=== PATIENT | male | born 1980 | race African-American/Black ===

== ENCOUNTER 2023-01-03 11:36 | Inpatient (IN) | payer OTHER, BC ==
[2023-01-03] MEDS ORDERED: Ondansetron PF 4 MG/2 ML Vial ONE (13:25)
[2023-01-03] MEDS ORDERED: Morphine 4 MG/ML VIAL ONE (13:25)
[2023-01-03 13:48] LABS: #Basophils 0.1 thou/uL (0.0-0.2); #Lymphocytes 1.8 thou/uL (1.20-3.40); #Monocytes 0.9 thou/uL (0.11-0.59); #Neutrophils 7.8 thou/uL (1.40-6.50); %Basophils 0.6 % (0.0-1.0); %Eosinophils 0.4 % (0.0-10.0); %Lymphocytes 16.8 % (21.0-51.0); %Monocytes 8.7 % (0.0-10.0); %Neutrophils 73.6 % (42.0-75.0); Hemoglobin 15.8 g/dL (14.0-18.0); Mean Corpuscular HGB CONC 34.3 g/dL (32.0-36.0); Mean Corpuscular Hemoglobin 34.4 pg (27.0-31.0); Mean Platelet Volume 7.8 fL (7.4-10.4); Platelet Count 197 10x3/uL (130-400); RBC Distribution Width 14.5 % (11.5-14.5); Red Blood Cell (RBC) Count 4.59 mill/uL (4.70-6.10); White Blood Cell (WBC) Count 10.6 10x3/uL (4.8-10.8)
[2023-01-03 14:00] LABS: INR-International Normal Ratio 0.9; Prothrombin Time 12.8 sec (12.0-14.7)
[2023-01-03 14:01] LABS: PTT 27.9 sec (22.9-36.1)
[2023-01-03 14:14] LABS: Phosphorus 3.5 mg/dL (2.3-4.7)
[2023-01-03 14:15] LABS: ALT (SGPT) 24 U/L (8-55); AST (SGOT) 48 U/L (5-34); Alkaline Phosphatase 80 U/L (40-110); Anion Gap 13 mmol/L (10-20); BUN (Urea Nitrogen) 6 mg/dL (8.9-20.6); Calc. Creatinine Clearance 0 mL/min (70-130); Calcium 8.3 mg/dL (7.8-10.44); Carbon Dioxide 23 mmol/L (22-29); Chloride 108 mmol/L (98-107); Estimated GFR 115; Globulin 2.7 g/dL (2.4-3.5); Glucose 94 mg/dL (70-105); Magnesium 1.8 mg/dL (1.6-2.6); Protein, Total 6.7 g/dL (6.0-8.3); Sodium 140 mmol/L (136-145)
[2023-01-03] MEDS ORDERED: hydrALAZINE 20 MG/ML VIAL SLOW IVP PRN (15:49)
[2023-01-03] MEDS ORDERED: Ondansetron PF 4 MG/2 ML Vial IVP PRN (15:49)
[2023-01-03] MEDS ORDERED: Dextrose 5% in Water 1,000 ML IV PRN (15:49)
[2023-01-03] MEDS ORDERED: Morphine 4 MG/ML VIAL SLOW IVP PRN (15:49)
[2023-01-03] MEDS ORDERED: TETANUS, DIPHTHERIA TOX,ADULT (TDVAX) 0.5 ML VIAL IM ONE (15:49)
[2023-01-03] MEDS ORDERED: Dextrose 50% Abboject 50 ML SYRINGE SLOW IVP PRN (15:49)
[2023-01-03] MEDS ORDERED: Cyclobenzaprine 10 MG TAB PO PRN (15:52)
[2023-01-03] MEDS ORDERED: Magnesium 2 GM/50 ML(in water) 2 GM in Premix Bag 1 BAG IVPB SCH (16:00)
[2023-01-03] MEDS ORDERED: traMADol HCl 50 MG TAB ONE (17:23)
[2023-01-03] MEDS ORDERED: Acetaminophen 500 MG TAB ONE (17:24)
[2023-01-03] MEDS ORDERED: Magnesium 2 GM/50 ML BAG (IN WATER) ONE (17:24)
[2023-01-03] MEDS ORDERED: Boostrix 0.5 ML (Tdap) VIAL (>/=7 yrs of age) ONE (17:24)
[2023-01-03] MEDS: traMADol HCl 50 MG TAB PO SCH (17:33)
[2023-01-03] MEDS: Acetaminophen 500 MG TAB PO SCH (17:33)
[2023-01-03] MEDS: Sodium Chloride 0.9% 1,000 ML IV SCH (17:39)
[2023-01-03 19:42] VITALS: BMI 32.8
[2023-01-03] MEDS ORDERED: Famotidine 20 MG TAB ONE (20:57)
[2023-01-03] MEDS: Famotidine 20 MG TAB PO SCH (21:18)
[2023-01-03] MEDS: Gabapentin 300 MG CAP PO SCH (21:19)
[2023-01-03] MEDS: Senokot S 8.6-50 MG TAB PO SCH (22:15)
[2023-01-04] MEDS ORDERED: traMADol HCl 50 MG TAB ONE ×2 (01:11→05:37)
[2023-01-04] MEDS ORDERED: Acetaminophen 500 MG TAB ONE ×2 (01:12→05:37)
[2023-01-04] MEDS: traMADol HCl 50 MG TAB PO SCH ×4 (01:17→17:41)
[2023-01-04] MEDS: Acetaminophen 500 MG TAB PO SCH ×3 (01:17→17:29)
[2023-01-04] MEDS: Sodium Chloride 0.9% 1,000 ML IV SCH ×3 (01:30→17:43)
[2023-01-04 04:53] LABS: #Eosinphils 0.1 thou/uL (0.0-0.7); #Lymphocytes 1.8 thou/uL (1.20-3.40); #Monocytes 0.7 thou/uL (0.11-0.59); #Neutrophils 4.5 thou/uL (1.40-6.50); %Basophils 0.3 % (0.0-1.0); %Eosinophils 1.6 % (0.0-10.0); %Monocytes 9.2 % (0.0-10.0); %Neutrophils 63.9 % (42.0-75.0); Hemoglobin 16.1 g/dL (14.0-18.0); Mean Corpuscular HGB CONC 34.8 g/dL (32.0-36.0); Mean Corpuscular Hemoglobin 35.2 pg (27.0-31.0); Mean Platelet Volume 8.1 fL (7.4-10.4); Platelet Count 183 10x3/uL (130-400); RBC Distribution Width 14.2 % (11.5-14.5); Red Blood Cell (RBC) Count 4.57 mill/uL (4.70-6.10); White Blood Cell (WBC) Count 7.1 10x3/uL (4.8-10.8)
[2023-01-04 05:17] LABS: Anion Gap 12 mmol/L (10-20); BUN (Urea Nitrogen) 8 mg/dL (8.9-20.6); Calc. Creatinine Clearance 208 mL/min (70-130); Calcium 8.4 mg/dL (7.8-10.44); Carbon Dioxide 24 mmol/L (22-29); Chloride 104 mmol/L (98-107); Estimated GFR 113; Glucose 100 mg/dL (70-105); Magnesium 2.1 mg/dL (1.6-2.6); Phosphorus 3.4 mg/dL (2.3-4.7); Potassium 3.8 mmol/L (3.5-5.1); Sodium 136 mmol/L (136-145)
[2023-01-04] MEDS ORDERED: hydrALAZINE 20 MG/ML VIAL ONE ×2 (05:32→15:18)
[2023-01-04] MEDS ORDERED: Thrombin 5000 UNITS/5 ML VIAL ONE (10:40)
[2023-01-04] MEDS ORDERED: CEFAZOLIN 2 GM VIAL ONE (10:59)
[2023-01-04] MEDS ORDERED: Sodium Chloride 0.9% 100 ML ONE (10:59)
[2023-01-04] MEDS ORDERED: Fentanyl 250 MCG/5 ML VIAL ONE (11:02)
[2023-01-04] MEDS ORDERED: PROPOFOL 200 MG/20 ML VIAL ONE (11:16)
[2023-01-04] MEDS ORDERED: Ondansetron PF 4 MG/2 ML Vial ONE (11:16)
[2023-01-04] MEDS ORDERED: Succinylcholine Chloride 100 MG/5 ML SYRINGE FS ONE (11:16)
[2023-01-04] MEDS ORDERED: Dexamethasone 20 MG/5 ML VIAL ONE (11:16)
[2023-01-04] MEDS ORDERED: Lidocaine 1% PF 5 ML VIAL ONE (11:16)
[2023-01-04] MEDS ORDERED: Phenylephrine 10 MG/ML VIAL ONE (11:16)
[2023-01-04] MEDS ORDERED: Rocuronium Bromide 10 MG/ML (10ML VIAL) ONE (11:16)
[2023-01-04] MEDS ORDERED: HYDROmorphone 2 MG/ML VIAL SLOW IVP PRN (12:01)
[2023-01-04] MEDS ORDERED: Promethazine HCl 25 MG/ML VIAL IM PRN (12:01)
[2023-01-04] MEDS ORDERED: Meperidine HCl/PF 25 MG/ML VIAL SLOW IVP PRN (12:01)
[2023-01-04] MEDS ORDERED: Ondansetron HCl/PF 4 MG/2 ML Vial IVP PRN (12:01)
[2023-01-04] MEDS ORDERED: Sevoflurane 250 ML INH ANEST BOTTLE ONE (12:55)
[2023-01-04] MEDS ORDERED: SUGAMMADEX SODIUM 200 MG/2 ML VIAL ONE (13:42)
[2023-01-04] MEDS ORDERED: HYDROmorphone 0.5 MG/0.5 ML SYRINGE ONE (14:10)
[2023-01-04] MEDS ORDERED: Promethazine HCl 25 MG/ML VIAL IVPB PRN (14:18)
[2023-01-04] MEDS ORDERED: diphenhydrAMINE 25 MG CAP PO PRN (14:18)
[2023-01-04] MEDS ORDERED: HYDROcodone/Acetaminophen 7.5/325 mg Tablet PO PRN (14:18)
[2023-01-04] MEDS ORDERED: Acetaminophen 325 MG TAB PO PRN (14:18)
[2023-01-04] MEDS ORDERED: Cepastat Lozenges 1 LOZ PO PRN (14:23)
[2023-01-04] MEDS ORDERED: Diazepam 5 MG TAB PO PRN (14:26)
[2023-01-04] MEDS ORDERED: Oxytocin 10 UNITS/ML VIAL ONE (15:35)
[2023-01-04] MEDS ORDERED: Metoprolol Tartrate 5 MG/5 ML VIAL ONE (15:35)
[2023-01-04] MEDS: Gabapentin 300 MG CAP PO SCH ×2 (16:38→20:44)
[2023-01-04] MEDS: Bacitracin 1 PK TOP SCH (16:38)
[2023-01-04] MEDS: Famotidine 20 MG TAB PO SCH ×2 (16:38→20:44)
[2023-01-04] MEDS: Polyethylene Glycol 3350 17 GM Packet PO SCH (16:39)
[2023-01-04] MEDS: Senokot S 8.6-50 MG TAB PO SCH ×2 (16:39→20:45)
[2023-01-04] MEDS ORDERED: Phenol 118 ML BOT PO PRN (17:08)
[2023-01-04] MEDS: Phenol 118 ML BOT PO PRN ×2 (17:40→20:52)
[2023-01-04] MEDS: CEFAZOLIN 2 GM in Sodium Chloride 0.9% 100 ML IVPB SCH (17:43)
[2023-01-05] MEDS: Acetaminophen/Codeine 30-300mg Tablet PO PRN ×3 (00:22→20:48)
[2023-01-05] MEDS: traMADol HCl 50 MG TAB PO SCH ×2 (00:24→05:41)
[2023-01-05] MEDS: CEFAZOLIN 2 GM in Sodium Chloride 0.9% 100 ML IVPB SCH ×3 (00:25→17:51)
[2023-01-05] MEDS: Sodium Chloride 0.9% 1,000 ML IV SCH ×2 (02:10→10:03)
[2023-01-05] MEDS: Famotidine 20 MG TAB PO SCH ×2 (09:57→20:48)
[2023-01-05] MEDS: Bacitracin 1 PK TOP SCH (09:58)
[2023-01-05] MEDS: Gabapentin 300 MG CAP PO SCH ×3 (09:58→20:47)
[2023-01-05] MEDS: Polyethylene Glycol 3350 17 GM Packet PO SCH (09:58)
[2023-01-05] MEDS: Senokot S 8.6-50 MG TAB PO SCH ×2 (09:58→20:47)
[2023-01-05] MEDS ORDERED: Amlodipine 5 MG TAB PO SCH (13:30)
[2023-01-06] MEDS: Acetaminophen/Codeine 30-300mg Tablet PO PRN ×2 (02:32→08:13)
[2023-01-06] MEDS: CEFAZOLIN 2 GM in Sodium Chloride 0.9% 100 ML IVPB SCH ×3 (02:35→17:19)
[2023-01-06] MEDS ORDERED: Amlodipine 5 MG TAB PO SCH ×3 (09:00)
[2023-01-06] MEDS: Bacitracin 1 PK TOP SCH (09:31)
[2023-01-06] MEDS: Senokot S 8.6-50 MG TAB PO SCH ×2 (09:31→20:54)
[2023-01-06] MEDS: Amlodipine 10 MG TAB PO SCH (09:31)
[2023-01-06] MEDS: Famotidine 20 MG TAB PO SCH ×2 (09:31→20:54)
[2023-01-06] MEDS: Gabapentin 300 MG CAP PO SCH ×3 (09:31→20:53)
[2023-01-06] MEDS: Cyclobenzaprine 10 MG TAB PO PRN ×2 (09:32→17:19)
[2023-01-06] MEDS: Polyethylene Glycol 3350 17 GM Packet PO SCH (09:32)
[2023-01-06] MEDS ORDERED: Acetaminophen 325 MG TAB PO SCH (12:00)
[2023-01-06] MEDS ORDERED: Acetaminophen/Codeine 30-300mg Tablet PO SCH (12:00)
[2023-01-06] MEDS: Acetaminophen 325 MG TAB PO SCH (20:52)
[2023-01-06] MEDS: Acetaminophen/Codeine 30-300mg Tablet PO SCH (20:53)
[2023-01-07] MEDS: Acetaminophen 325 MG TAB PO SCH ×3 (01:37→14:04)
[2023-01-07] MEDS: Acetaminophen/Codeine 30-300mg Tablet PO SCH ×3 (01:37→14:04)
[2023-01-07] MEDS: CEFAZOLIN 2 GM in Sodium Chloride 0.9% 100 ML IVPB SCH ×2 (01:38→07:52)
[2023-01-07] MEDS: traMADol HCl 50 MG TAB PO PRN ×2 (06:48→14:05)
[2023-01-07 07:32] LABS: #Basophils 0.1 thou/uL (0.0-0.2); #Eosinphils 0.2 thou/uL (0.0-0.7); #Lymphocytes 2.1 thou/uL (1.20-3.40); #Monocytes 0.6 thou/uL (0.11-0.59); #Neutrophils 3.6 thou/uL (1.40-6.50); %Basophils 0.8 % (0.0-1.0); %Eosinophils 2.8 % (0.0-10.0); %Lymphocytes 31.3 % (21.0-51.0); %Monocytes 9.5 % (0.0-10.0); %Neutrophils 55.7 % (42.0-75.0); Hemoglobin 15.1 g/dL (14.0-18.0); Mean Corpuscular HGB CONC 31.1 g/dL (32.0-36.0); Mean Corpuscular Hemoglobin 31.9 pg (27.0-31.0); Mean Platelet Volume 8.1 fL (7.4-10.4); Platelet Count 219 10x3/uL (130-400); RBC Distribution Width 13.9 % (11.5-14.5); Red Blood Cell (RBC) Count 4.74 mill/uL (4.70-6.10); White Blood Cell (WBC) Count 6.5 10x3/uL (4.8-10.8)
[2023-01-07 07:59] LABS: Anion Gap 11 mmol/L (10-20); BUN (Urea Nitrogen) 6 mg/dL (8.9-20.6); Calc. Creatinine Clearance 175 mL/min (70-130); Calcium 9.1 mg/dL (7.8-10.44); Carbon Dioxide 28 mmol/L (22-29); Chloride 102 mmol/L (98-107); Estimated GFR 102; Glucose 95 mg/dL (70-105); Magnesium 1.9 mg/dL (1.6-2.6); Phosphorus 3.9 mg/dL (2.3-4.7); Potassium 4.2 mmol/L (3.5-5.1); Sodium 137 mmol/L (136-145)
[2023-01-07] MEDS: Gabapentin 300 MG CAP PO SCH ×2 (08:11→14:04)
[2023-01-07] MEDS: Bacitracin 1 PK TOP SCH (08:11)
[2023-01-07] MEDS: Polyethylene Glycol 3350 17 GM Packet PO SCH (08:11)
[2023-01-07] MEDS: Amlodipine 10 MG TAB PO SCH (08:12)
[2023-01-07] MEDS: Senokot S 8.6-50 MG TAB PO SCH (08:12)
[2023-01-07] MEDS: Famotidine 20 MG TAB PO SCH (08:13)
[2023-01-07 13:43] VITALS: BP 159/93; TEMP 98.4
== END 2023-01-07 16:01 | disposition home or self-care (01) | DRG 473 ==
LOC: ERS 11:36 → ERHOLD 15:49 → SURG A 01-04 07:59
PROVIDERS: ADMIT Surgery; ATTEND Surgery
PROC: 0RG20A0 Fusion of 2 or more Cervical Vertebral Joints with Interbody Fusion Device, Anterior Approach, Anterior Column, Open Approach (ICD-10-PCS; principal; 2023-01-04)
PROC: 0RG40A0 Fusion of Cervicothoracic Vertebral Joint with Interbody Fusion Device, Anterior Approach, Anterior Column, Open Approach (ICD-10-PCS; 2023-01-04)
PROC: 0RB30ZZ Excision of Cervical Vertebral Disc, Open Approach (ICD-10-PCS; 2023-01-04)
PROC: 0RB50ZZ Excision of Cervicothoracic Vertebral Disc, Open Approach (ICD-10-PCS; 2023-01-04)
PROC: 00NW0ZZ Release Cervical Spinal Cord, Open Approach (ICD-10-PCS; 2023-01-04)
DX: S12.600A Unspecified displaced fracture of seventh cervical vertebra, initial encounter for closed fracture (principal); G89.11 Acute pain due to trauma; M48.02 Spinal stenosis, cervical region; M50.223 Other cervical disc displacement at C6-C7 level; I10 Essential (primary) hypertension; F17.210 Nicotine dependence, cigarettes, uncomplicated; V89.2XXA Person injured in unspecified motor-vehicle accident, traffic, initial encounter
CPT/HCPCS: 36415; 72141; 80048; 80053; 83605; 83735; 84100; 85025; 85610; 85730; 86850; 86900; 86901; 90714; 90715; 93005; 96374; 96375; C1713; C1768; G0390; J0360; J1100; J1170; J2270; J2370; J2405; J2590; J2704; J3010; J3475; J3490; J7050